=== PATIENT | male | born 1960 | race Caucasian/White ===

== ENCOUNTER 2024-02-14 14:35 | Emergency (ER) | payer BC ==
[2024-02-14 14:50] LABS: BASOPHILS PERCENT AUTO 0.8 % (0.1-1.3); EOSINOPHILS ABSOLUTE AUTO 0.07 K/uL (0.00-0.40); EOSINOPHILS PERCENT AUTO 0.6 % (0.0-5.4); HEMATOCRIT 44.9 % (38.4-49.7); HEMOGLOBIN 15.9 g/dL (12.9-16.9); IMMATURE GRAN ABSOLUTE AUTO 0.05 K/uL (0.00-0.23); IMMATURE GRAN PERCENT AUTO 0.4 % (0.0-0.7); LYMPHOCYTES ABSOLUTE AUTO 1.81 K/uL (0.8-3.3); LYMPHOCYTES PERCENT AUTO 15.2 % (11.4-47.7); MEAN CORPUSCULAR HEMOGLOBIN 30.1 pg (31.6-35.5); MEAN CORPUSCULAR HGB CONC 35.4 g/dL (31.6-35.5); MONOCYTES ABSOLUTE AUTO 0.59 K/uL (0.20-0.90); NEUTROPHILS ABSOLUTE AUTO 9.27 K/uL (1.0-7.6); PLATELET COUNT,PLT 266 K/uL (130-375); RED BLOOD CELL COUNT 5.28 M/uL (4.14-5.76); WHITE BLOOD CELL COUNT,WBC 11.9 K/uL (3.2-11.0)
[2024-02-14] MEDS: Aspirin 81 MG Tab.Chew PO ONE (14:55)
[2024-02-14] MEDS: Nitroglycerin 0.4 MG Tab.SL SL PRN (14:56)
[2024-02-14 15:09] LABS: PROTHROMBIN TIME 10.4 sec (9.2-10.6); PTT,PARTIAL THROMBOPLSTIN TIME 28.2 sec (21.8-27.3)
[2024-02-14 15:13] LABS: ANION GAP 16.7 mmol/L (5.0-14.0); CALCIUM 9.5 mg/dL (8.5-10.1); CREATININE 1.3 mg/dL (0.8-1.3); EST CRCL DRUG DOSING (CG) 71.32 mL/min; POTASSIUM,K 3.7 mmol/L (3.6-5.2)
[2024-02-14 15:14] LABS: TROPONIN I HIGH SENSITIVITY 1630.7 pg/mL (<=60.3)
[2024-02-14] MEDS: Heparin Sodium 5,000 Units/ML Vial IVPUSH ONE (15:20)
[2024-02-14] MEDS: Heparin Sodium/D5W 25,000 UNITS/500 ML BAG IV SCH (15:21)
[2024-02-14] MEDS: Ticagrelor 90 MG Tab PO ONE (16:35)
== END 2024-02-14 17:03 ==
LOC: JP.ED 14:35
DX: I21.3 ST elevation (STEMI) myocardial infarction of unspecified site (principal); Z87.891 Personal history of nicotine dependence
CPT/HCPCS: 36415; 71045; 80048; 84484; 85025; 85610; 85730; 93005; 96365; 96366; 99285; A9270; J1644